=== PATIENT | female | born 1950 ===

== ENCOUNTER 2017-08-31 11:48 | Outpatient (CLI) | payer OTHER | END 2017-08-31 15:20 | disposition home or self-care (01) | LOC: LAB 11:48 | DX: C73 Malignant neoplasm of thyroid gland (principal); E89.0 Postprocedural hypothyroidism ==

== ENCOUNTER 2017-09-02 11:14 | Outpatient (CLI) | payer OTHER | END 2017-09-02 11:26 | disposition home or self-care (01) | LOC: NUCLEAR 11:14 | DX: C73 Malignant neoplasm of thyroid gland (principal); E89.0 Postprocedural hypothyroidism | CPT/HCPCS: 79005; A9517 ==

== ENCOUNTER 2017-09-06 08:29 | Outpatient (CLI) | payer OTHER | END 2017-09-06 09:30 | disposition home or self-care (01) | LOC: NUCLEAR 08:29 | DX: C73 Malignant neoplasm of thyroid gland (principal); E89.0 Postprocedural hypothyroidism ==

== ENCOUNTER 2018-08-30 09:42 | Outpatient (CLI) | payer OTHER | END 2018-08-30 09:55 | disposition home or self-care (01) | LOC: LAB 09:42 | DX: E89.0 Postprocedural hypothyroidism (principal) ==

== ENCOUNTER → 2018-09-02 | Outpatient (CLI) | payer OTHER | END | disposition home or self-care (01) | LOC: NUCLEAR 09-06 13:00 | DX: C73 Malignant neoplasm of thyroid gland (principal) | CPT/HCPCS: 78018; 78020; A9528 ==